=== PATIENT | female | born 1990 | race Caucasian/White ===

== ENCOUNTER 2017-05-10 18:13 | Emergency (ER) | payer OTHER ==
[~2017-05-10] VITALS: Ht 157.5 cm; Wt 80.4 kg
[~2017-05-10 18:13] MED LIST: ACID CONTROL75 MG PO; IBUPROFEN800 MG PO; IRON325 MG PO; TOBREX3.5 GM RIGHT EYE; ULTRAM50 MG PO
[2017-05-10 19:51] LABS: HEMATOCRIT 40.5 % (36.0-46.0); MCHC 33.6 G/DL (30.0-36.0); MCV 89.4 FL (83-99); MEAN PLAT.VOLUME 10.7 uM^3 (9.5-12.4); PLATELET COUNT 251 K/uL (156-360); RBC DIS.WIDTH-CV 11.9 % (11.8-14.6); RBC DIS.WIDTH-SD 38.4 % (39-53); RED BLOOD COUNT 4.53 M/uL (3.80-5.20); WHITE BLOOD COUNT 12.9 K/uL (4.1-10.2)
[2017-05-10 20:00] LABS: CHLORIDE 105 mEq/L (99-109); POTASSIUM 3.6 mEq/L (3.7-5.4); SODIUM 139 mEq/L (136-147)
[2017-05-10 20:02] LABS: GLUCOSE 93 mg/dL (70-99)
[2017-05-10 20:04] LABS: ANION GAP 10 MEQ/L (2-14); TOTAL BILIRUBIN 0.3 mg/dL (0.0-1.0)
[2017-05-10 20:06] LABS: ALKALINE PHOSPHATASE 66 IU/L (3-129); GFR ESTIMATE (CALCULATED) > 59 mL/min/
[2017-05-10 20:07] LABS: UREA NITROGEN (BUN) 14 mg/dL (9-23)
[2017-05-10 20:15] LABS: QUANTITATIVE HCG < 4.0 MIU/ML
[2017-05-10 21:51] LABS: ADD MIUA? YES; BILIRUBIN NEGATIVE; BLOOD NEGATIVE; COLOR YELLOW ((YELLOW)); GLUCOSE (STRIP) NEGATIVE; KETONES NEGATIVE; LEUKOCYTES TRACE; NITRITE NEGATIVE; PROTEIN (STRIP) NEGATIVE; SPECIFIC GRAVITY 1.035 (1.000-1.030); UROBILINOGEN 0.2 MG/DL (0.2-1.0)
[2017-05-10 21:58] LABS: BACTERIA RARE /HPF; EPITHELIAL CELLS 2+ /HPF; MUCUS TRACE /LPF; RED BLOOD CELLS 0-5 /HPF (0-5); UCUL ADDED? NO; WHITE BLOOD CELLS 0-5 /HPF (0-5)
[2017-05-10] MEDS ORDERED: SKELAXIN800 MG PO (22:05)
[2017-05-10] MEDS ORDERED: MOTRIN800 MG PO (22:05)
[2017-05-10 22:26] VITALS: BP 135/79
== END 2017-05-10 22:30 | disposition home or self-care (01) ==
LOC: EME 18:13
PROVIDERS: Physician Assistant
DX: S16.1XXA Strain of muscle, fascia and tendon at neck level, initial encounter (principal); S06.0X9A Concussion with loss of consciousness of unspecified duration, initial encounter; S63.502A Unspecified sprain of left wrist, initial encounter; F17.200 Nicotine dependence, unspecified, uncomplicated; V89.2XXA Person injured in unspecified motor-vehicle accident, traffic, initial encounter; Y92.410 Unspecified street and highway as the place of occurrence of the external cause
CPT/HCPCS: 70496; 70498; 73110; 80053; 81003; 84702; 85027; 99281; 99284; J7030